=== PATIENT | female | born 1950 | race Caucasian/White ===

== ENCOUNTER 2019-09-19 08:21 | Emergency (ER) | payer MEDICARE, OTHER, SELFPAY ==
[2019-09-19 08:36] VITALS: BP 147/83; PULSE 88; RESP 20; TEMP 37.1; O2SAT 98
--- NOTE | 2019-09-19 08:52 | ED.URI ---
HPI - URI/Sore Throat General Chief Complaint: Upper Respiratory Infection Stated Complaint: cough sore throat fever Time Seen by Provider: 09/19/19 08:52 Source: patient and RN notes reviewed History of Present Illness HPI Narrative: Patient is a 69-year-old female presents the urgent care with complaints of cough, sore throat, fever. Patient states that she went to a [employer] party and a lot of people were diagnosed with influenza. Patient states her was diagnosed yesterday and she started the symptoms last night. Patient has been using Tylenol, ibuprofen and has been on amoxicillin since Saturday for dental related reason. Patient states she did get her flu vaccine. Has also been using Tessalon Perles without any cough relief. Denies any shortness of breath or wheezing. No other acute complaints. No acute distress noted. Patient read the plan of care. Related Data Home Medications Medication Instructions Recorded Confirmed amlodipine 5 mg PO DAILY 09/19/19 09/19/19 diclofenac sodium 75 mg PO BID 09/19/19 09/19/19 progesterone micronized 200 mg PO HS 09/19/19 09/19/19 spironolactone 50 mg PO DAILY 09/19/19 09/19/19 thyroid (pork) [[place] Thyroid] 120 mg PO DAILY 09/19/19 09/19/19 Allergies Allergy/AdvReac Type Severity Reaction Status Date / Time TAPE Allergy Mild REDNESS Uncoded 09/19/19 09:05 Review of Systems Review of Systems: Narrative: CONSTITUTIONAL: Reports of fevers EYES: Denies visual changes, redness, or discharge. ENT: Reports of sore throat and postnasal drainage CARDIOVASCULAR: Denies chest pain, palpitations, or edema. RESPIRATORY: Reports of yellow productive cough without dyspnea or wheezing. GASTROINTESTINAL: Denies abdominal pain, nausea, vomiting, or diarrhea. GENITOURINARY: Denies dysuria or hematuria. SKIN: Denies rash or itching. MUSCULOSKELETAL: Denies back pain, joint pain, or myalgia. NEUROLOGIC: Denies headache, numbness, or weakness. All other systems reviewed are negative, except as documented in HPI. PMFSH Comments At the time of my signature, I reviewed and agree with the nursing past medical, surgical, social, and family history. There is no relevant family history pertinent to the patient complaint. Exam Narrative: Exam Narrative: GENERAL: This is a well-nourished, well-developed patient, in no apparent distress. HEAD: normocephalic, atraumatic. EYES: PERRL. Sclera clear/white. Vision is grossly intact. EARS: External ears normal, auditory canals clear and without drainage, TMs normal without perforation. Hearing grossly intact. NOSE: External nose normal with no obvious nasal discharge, mild erythemic bilateral nares with clear rhinorrhea. THROAT: Mucous membranes moist, posterior pharynx clear. Moderate postnasal drainage NECK: Neck supple, non-tender without lymphadenopathy CARDIOVASCULAR: Regular rate and rhythm without murmurs, gallops, or rubs. RESPIRATORY: Clear to auscultation. Breath sounds equal bilaterally. No wheezes, rales, or rhonchi. SKIN: warm, intact with no suspicious lesions or rash, good texture and turgor. NEURO: awake, alert, and oriented to person, place and time. There were no obvious focal neurologic abnormalities. EXTREMITIES: No clubbing, cyanosis, or edema. Course Vital Signs Vital signs: Vital Signs Temperature 98.7 F 09/19/19 08:36 Pulse Rate 88 09/19/19 08:36 Respiratory Rate 20 09/19/19 08:36 Blood Pressure 147/83 H 09/19/19 08:36 Pulse Oximetry 98 09/19/19 08:36 Temperature 98.7 F 09/19/19 08:36 Pulse Rate 88 09/19/19 08:36 Respiratory Rate 20 09/19/19 08:36 Blood Pressure 147/83 H 09/19/19 08:36 Pulse Oximetry 98 09/19/19 08:36 Reviewed?patient is informed that they may have pre-hypertension or hypertension based on a blood pressure reading in the department. I recommend the patient call the primary care provider listed on their discharge instructions or a physician of their choice this week to arr
== END 2019-09-19 09:20 | disposition home or self-care (01) ==
PROVIDERS: Emergency Provider Nurse Practitioner Family
DX: J06.9 Acute upper respiratory infection, unspecified (principal); I10 Essential (primary) hypertension; M19.90 Unspecified osteoarthritis, unspecified site; E03.9 Hypothyroidism, unspecified
CPT/HCPCS: 87804; 99203; G0463